=== PATIENT | female | born 1960 | race Caucasian/White ===

== ENCOUNTER 2023-03-18 10:47 | Outpatient (CLI) | payer OTHER | END 2023-03-18 10:48 | disposition home or self-care (01) | LOC: CSHRAD 10:47 | PROVIDERS: ATTEND Student in an Organized Health Care Education/Training Program | DX: M79.671 Pain in right foot (principal) ==

== ENCOUNTER 2024-05-30 15:31 | Outpatient (CLI) | payer OTHER | END 2024-05-30 15:32 | disposition home or self-care (01) | LOC: CSHLAB 15:31 | PROVIDERS: ATTEND Student in an Organized Health Care Education/Training Program | DX: Z01.818 Encounter for other preprocedural examination (principal); N95.0 Postmenopausal bleeding | CPT/HCPCS: 85027; 86850; 86900; 86901; 93005; 93010 ==

== ENCOUNTER 2024-06-01 10:45 | Day surgery (SDC) | payer OTHER ==
[2024-05-30 16:05] VITALS: BMI 35.5
[2024-05-30 16:17] LABS: Hematocrit 36.9 % (34.9-44.5); Hemoglobin 12.5 g/dL (12.0-15.5); Mean Corpuscular HGB CONC 33.9 g/dL (32.0-36.0); Mean Corpuscular Volume 88.7 fL (81.6-98.3); Mean Platelet Volume 9.3 fL (7.4-10.4); Platelet Count 338 10x3/uL (150-450); RBC Distribution Width 12.3 % (11.5-14.5); Red Blood Cell (RBC) Count 4.16 10x6/uL (3.90-5.03); White Blood Cell (WBC) Count 8.4 10x3/uL (3.5-10.5)
[2024-06-01] MEDS ORDERED: CeleCOXIB 100 MG CAP ONE (11:03)
[2024-06-01] MEDS ORDERED: PROPOFOL 20 ML ONE ×2 (12:41→13:18)
[2024-06-01] MEDS ORDERED: Lidocaine 2% PF 5 ML VIAL ONE (12:41)
[2024-06-01] MEDS ORDERED: Dexamethasone 4 mg/ml Vial ONE (13:06)
[2024-06-01] MEDS ORDERED: Ondansetron PF 4 MG/2 ML Vial ONE (13:06)
[2024-06-01] MEDS ORDERED: fentaNYL 50 mcg/mL 1 mL Vial ONE ×3 (13:15→13:53)
[2024-06-01] MEDS ORDERED: Propofol 1,000 MG/100 ML VIAL IV ONE (13:19)
[2024-06-01] MEDS ORDERED: HYDROcodone/Acetaminophen 5/325 mg Tablet ONE (14:35)
== END 2024-06-01 15:27 | disposition home or self-care (01) ==
LOC: CSHSDC 10:45
PROVIDERS: ATTEND Student in an Organized Health Care Education/Training Program
PROC: 0UDB8ZZ Extraction of Endometrium, Via Natural or Artificial Opening Endoscopic (ICD-10-PCS; principal; 2024-06-01)
DX: N95.0 Postmenopausal bleeding (principal); N84.0 Polyp of corpus uteri; D26.0 Other benign neoplasm of cervix uteri; B37.31 Acute candidiasis of vulva and vagina; I10 Essential (primary) hypertension; K21.9 Gastro-esophageal reflux disease without esophagitis; Z88.0 Allergy status to penicillin; Z88.1 Allergy status to other antibiotic agents; Z88.8 Allergy status to other drugs, medicaments and biological substances; Z79.899 Other long term (current) drug therapy; Z87.891 Personal history of nicotine dependence
CPT/HCPCS: 85027; 86850; 86900; 86901; 88305; J1100; J2405; J2704; J3010